=== PATIENT | female | born 1960 | race Caucasian/White ===

== ENCOUNTER → 2016-07-14 | Outpatient (CLI) | payer OTHER ==
--- NOTE | 2016-07-14 10:56 | DX ---
Chest, Two Views July 14, 2016, at 0910 Hours History: Left lower lobe rales, R/O pneumonia. Comparison: None. Findings: Cardiac silhouette is within normal range. Mild bilateral peribronchial thickening. No pneu monia, congestive heart failure, pleural effusion, or pneumothorax. Impression: 1. Bronchitis. 2. No focal pneumonia.
== END ==
LOC: FIMAGING 09:14
PROVIDERS: ATTEND Family Medicine
DX: Z13.83 Encounter for screening for respiratory disorder NEC (principal)

== ENCOUNTER → 2016-11-14 | Outpatient (CLI) | payer OTHER | LOC: FIMAGING 14:19 | PROVIDERS: ATTEND Obstetrics & Gynecology Gynecology | DX: Z12.31 Encounter for screening mammogram for malignant neoplasm of breast (principal) | CPT/HCPCS: G0202 ==

== ENCOUNTER 2016-12-16 12:25 | Emergency (ER) | payer OTHER ==
[2016-12-16 12:35] VITALS: TEMP 98.2
--- NOTE | 2016-12-16 13:29 | EDPHY ---
H & P Time Seen by Provider: 12/16/16 12:42 HPI/ROS: CHIEF COMPLAINT: Shingles HISTORY OF PRESENT ILLNESS: This is a 56-year-old female presenting to the emergency department concern for spread of shingles, and right eye infection. Patient states she was seen last week and for shingles on her ear placed on acyclovir, but has not been able to take the full daily dose because it irritates her stomach and causes migraines so she has been splitting the pills up taking 400 mg several times a day. Patient did see her primary care physician on Sunday he told her that was fine but it may take a little bit longer for the shingles to resolve. Patient here today after speaking with her PCP there is a current turn of herpes in her eyelid and she should be placed on antibiotic. Complaining of right eye irritation, No burning, no blurred vision REVIEW OF SYSTEMS: Constitutional: No fever, no chills. Eyes: No discharge. Right eye irritation no blurred vision ENT: No sore throat. Cardiovascular: No chest pain, no palpitations. Respiratory: No cough, no shortness of breath. Gastrointestinal: No abdominal pain, no vomiting. Musculoskeletal: No back pain. Skin: Shingles Neurological: No headache. Physical Exam: General Appearance: Alert and no distress. HEENT: Normocephalic atraumatic Pupils equal and round no injection. One vesicle noted on the lower right eyelid at the line of her eye lash, no ulcers noted no corneal ulcers Respiratory: Chest is nontender, lungs are clear to auscultation. Cardiac: regular rate and rhythm Gastrointestinal: Abdomen is soft and nontender, no masses, bowel sounds normal. Musculoskeletal: Neck is supple and nontender. Extremities have full range of motion and are nontender. Skin: Few vesicles noted on right cheek Constitutional: Initial Vital Signs Temperature (C) 36.8 C 12/16/16 12:32 Heart Rate 80 12/16/16 12:32 Respiratory Rate 18 12/16/16 12:32 Blood Pressure 159/75 H 12/16/16 12:32 O2 Sat (%) 98 12/16/16 12:32 O2 Delivery Mode Room Air Allergies/Adverse Reactions: isovue 300 contrast Allergy (Severe, Uncoded 12/11/11 10:05) hives,throat tightening Home Medications: Medication Instructions Recorded Acyclovir 12/16/16 Erythromycin 0.5% 3.5 gm OP Q4-6PRN #1 opht.oint 12/16/16 ED Images - Head Eyes Right/Left: 1 - Vesical Medical Decision Making ED Course/Re-evaluation: Discussed plan of care with patient: Continue taking the is eye closure that was prescribed to you by the previous provider. Prescription of erythromycin ointment was prescribed for right eye. We also discussed following up with Ophthalmology on Sunday. Patient agreed with this plan. Discharge home---> stable, discussed discharge instructions Differential Diagnosis: Other differential diagnosis considered but not limited to herpes zoster ophthalmicus, post herpetic pain, and cellulitis trigeminal neuralgia Departure - Departure Disposition: Home, Routine, Self-Care Clinical Impression: Shingles rash Qualifiers: Herpes zoster complications: without complications Qualified Code(s): B02.9 - Zoster without complications Condition: Good Instructions: Shingles (ED) Additional Instructions: 1. Continue taking acyclovir prescribed by previous provider 2. Use erythromycin eye ointment 3. 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 If at any point time you feel symptoms have worsen return to the ER Referrals: RENARD YANEZ [Primary Care Provider] - As per Instructions Prescriptions: Erythromycin 0.5% 3.5 gm OP Q4-6PRN #1 opht.oint
[2016-12-16 14:05] VITALS: BP 138/72; PULSE 85; RESP 16; O2SAT 96
== END 2016-12-16 14:05 | disposition home or self-care (01) ==
DX: B02.9 Zoster without complications (principal)

== ENCOUNTER → 2018-01-16 | Outpatient (CLI) | payer OTHER | DX: Z12.31 Encounter for screening mammogram for malignant neoplasm of breast (principal) ==